=== PATIENT | female | born 1950 | race African-American/Black ===

== ENCOUNTER 2016-05-11 15:56 | Emergency (ER) | payer MEDICAID, OTHER ==
[~2016-05-11] VITALS: Ht 167.6 cm; Wt 90.7 kg
[~2016-05-11 15:56] MED LIST: ATIVAN1 MG ORAL
[2016-05-11 16:29] VITALS: BP 176/98
[2016-05-11] MEDS ORDERED: TYLENOL EXTRA500 MG ORAL (17:58)
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
--- NOTE | 2016-05-12 10:11 | Diagnostic Imaging Report ---
Indication: Neck pain. Technique: Continuous helical imaging of the cervical spine was obtained transaxially from the skull base to the upper thoracic spine. 2-D coronal and sagittal reformatted images were obtained. Total Dose length Product (DLP): [address] Dose Index Volume (CTDIvol): 16.5, 70.4 mGy Comparison: None Findings: There is no acute fracture or malalignment identified. There is no soft tissue swelling identified. Mild uncovertebral arthritis is demonstrated at multiple levels. Some of the intervertebral discs show mild narrowing. Impression: No acute injury Mild spondylosis The CT scanner at [facility] is accredited by the [employer] and the scans are performed using protocols designed to limit radiation exposure to as low as reasonably achievable to attain images of sufficient resolution adequate for diagnostic evaluation.
--- NOTE | 2016-05-12 11:45 | Diagnostic Imaging Report ---
Indication: Headache Technique: Contiguous 5 mm thick transaxial imaging of the head obtained in a Siem[employer] Sensation [address] scanner[address] Soft tissue and bone windows generated. Total Dose length Product (DLP): [address] Dose Index Volume (CTDIvol): 70.38 mGy Comparison: none Findings: The size and configuration of the cortical sulci, basal cisterns, and ventricles are within normal limits for age. There is no mass effect, midline shift, or edema identified. There is no evidence of acute hemorrhage or abnormal intra-axial or extra-axial fluid collections. There is moderate left periorbital soft tissue swelling. Impression: No mass effect, edema or acute bleed. Left periorbital soft tissue contusion. Dr. wright has communicated the preliminary results to the Emergency Department. There are no significant discrepancies. The CT scanner at [facility] is accredited by the [employer] and the scans are performed using protocols designed to limit radiation exposure to as low as reasonably achievable to attain images of sufficient resolution adequate for diagnostic evaluation.
== END 2016-05-11 18:29 | disposition home or self-care (01) ==
LOC: EDBD 15:56 → EMR 18:23
DX: H11.33 Conjunctival hemorrhage, bilateral (principal); S00.83XA Contusion of other part of head, initial encounter; Y04.2XXA Assault by strike against or bumped into by another person, initial encounter; Y93.9 Activity, unspecified; Y92.9 Unspecified place or not applicable; Y99.9 Unspecified external cause status; Z88.6 Allergy status to analgesic agent; I10 Essential (primary) hypertension; K92.9 Disease of digestive system, unspecified
CPT/HCPCS: 70450; 72125; 99284